=== PATIENT | female | born 1960 | race African-American/Black ===

== ENCOUNTER 2022-03-22 17:01 | Inpatient (IN) ==
[2022-03-22] MEDS ORDERED: HYDROmorphone 1 MG/1 ML SYRINGE IV STA (17:34)
[2022-03-22] MEDS ORDERED: METOPROLOL TARTRATE 50 MG TABLET PO STA (17:48)
[2022-03-22] MEDS ORDERED: VALSARTAN 160 MG TABLET PO ONE (17:50)
[2022-03-22 18:22] LABS: Mucus,Urine Occasional /LPF (Occasional); RBC,Urine 8 /HPF (0-4); Squamous Epithelial Cell,Urine Occasional /HPF (0-10); Urine Appearance Clear (Clear); Urine Color Yellow (Yellow)
[2022-03-22 18:23] LABS: Bilirubin,Urine Negative (Negative); Blood, Urine Trace mg/dL (Negative); Glucose,Urine (UA) Negative (Negative); Ketones,Urine Negative (Negative); Nitrite,Urine Negative (Negative); Protein,Urine 100 mg/dL (Negative); Urine Specific Gravity 1.025 (1.001-1.035); Urine pH 5.5 (4.5-8.0)
[2022-03-22 18:30] LABS: Basophils % 0.1 % (0.0-0.8); Hematocrit 37.5 VOL% (35.7-47.0); Hemoglobin 11.6 GM/DL (12.0-16.0); Immature Granulocytes % 0.8 %; Immature Granulocytes Absolute 0.08 #; Lymphocytes # 0.3 10*3/uL (1.4-4.0); Lymphocytes % 2.6 % (21.3-54.2); Mean Corpuscular HGB Conc 30.9 GM/DL (32-36); Mean Corpuscular Volume 88.7 FL (87-102); Mean Platelet Volume 9.8 FL (9.6-12.0); Monocytes # 0.8 10*3/uL (0.11-0.8); Neutrophils % 88.5 % (38.7-73.9); Platelet Count 260 T/CUMM (130-400); Red Blood Count 4.23 MC/CUMM (3.8-5.5); Red Cell Distribution Width 15.9 % (9.3-17.3); White Blood Count 10.4 T/CUMM (4-12)
[2022-03-22] MEDS ORDERED: MAGNESIUM SULF RIDER 2 GM/50 ML PREMIX IV STA (18:55)
[2022-03-22] MEDS ORDERED: ACETAMINOPHEN 500 MG TABLET PO STA (18:56)
[2022-03-22] MEDS ORDERED: cefTRIAXone 1,000 MG in SODIUM CHLORIDE 0.9% 100 ML IV STA (18:56)
[2022-03-22 19:01] LABS: Albumin 2.2 G/DL (3.4-5.0); Bilirubin,Total 1.3 MG/DL (0.20-1.00); Calcium 9.3 MG/DL (8.5-10.1); Osmolality,Calculated 281.7 MOS/KG (273-304); Potassium 3.6 MMOL/L (3.5-5.1); Total Protein 6.8 G/DL (6.4-8.2)
[2022-03-22 19:03] LABS: Band Neutrophils 13 % (0-10); Lymphocytes 4 % (20-55); Platelet Estimate Adequate; Total Cells Counted 100
[2022-03-22] MEDS ORDERED: GLUCAGON 1 MG VIAL IM PRN (20:08)
[2022-03-22] MEDS ORDERED: DEXTROSE 10% 250 ML BAG IV PRN (20:08)
[2022-03-22] MEDS ORDERED: ONDANSETRON 4 MG/2 ML VIAL IV PRN (20:13)
[2022-03-22] MEDS: METOPROLOL TARTRATE 50 MG TABLET PO SCH (22:34)
[2022-03-22] MEDS: ENOXAPARIN 40 MG/0.4 ML SYRINGE SUBCUT SCH (22:34)
[2022-03-22] MEDS: SODIUM CHLORIDE 0.9% 1,000 ML IV SCH (22:35)
[2022-03-22] MEDS: INSULIN REGULAR 100 UNIT/ML SUBCUT SCH (22:35)
[2022-03-23] MEDS: MORPHINE 2 MG/1 ML SYRINGE IV PRN ×3 (02:11→16:58)
[2022-03-23 04:48] LABS: Basophils % 0.2 % (0.0-0.8); Eosinophils % 0.1 % (0.00-10.9); Hematocrit 33.3 VOL% (35.7-47.0); Hemoglobin 10.2 GM/DL (12.0-16.0); Immature Granulocytes % 0.4 %; Immature Granulocytes Absolute 0.04 #; Lymphocytes # 0.4 10*3/uL (1.4-4.0); Lymphocytes % 4.2 % (21.3-54.2); Mean Corpuscular HGB Conc 30.6 GM/DL (32-36); Mean Corpuscular Volume 87.9 FL (87-102); Monocytes # 0.9 10*3/uL (0.11-0.8); Monocytes % 8.1 % (1.7-12.7); Platelet Count 224 T/CUMM (130-400); Red Blood Count 3.79 MC/CUMM (3.8-5.5); Red Cell Distribution Width 15.9 % (9.3-17.3); White Blood Count 10.4 T/CUMM (4-12)
[2022-03-23 05:13] LABS: Albumin 1.8 G/DL (3.4-5.0); Bilirubin,Total 1.2 MG/DL (0.20-1.00); Calcium 8.7 MG/DL (8.5-10.1); Osmolality,Calculated 283.5 MOS/KG (273-304); Potassium 3.5 MMOL/L (3.5-5.1); Risk Ratio 3.28; Thyroid Stimulating Hormone 0.394 uIU/ml (0.358-3.74); Total Protein 5.9 G/DL (6.4-8.2); VLDL Cholesterol 11.8 MG/DL
[2022-03-23 05:19] LABS: Band Neutrophils 5 % (0-10); Lymphocytes 4 % (20-55); Total Cells Counted 100
[2022-03-23 05:20] LABS: Hypochromia Slight; Microcytosis Slight
[2022-03-23 05:21] LABS: Ovalocytes Slight; Platelet Estimate Normal
[2022-03-23] MEDS: SODIUM CHLORIDE 0.9% 1,000 ML IV SCH (06:55)
[2022-03-23] MEDS: ATORVASTATIN 20 MG TABLET PO SCH (08:51)
[2022-03-23] MEDS: VALSARTAN 160 MG TABLET PO SCH (08:51)
[2022-03-23] MEDS: PANTOPRAZOLE 40 MG TABLET PO SCH (08:51)
[2022-03-23] MEDS: METOPROLOL TARTRATE 50 MG TABLET PO SCH ×2 (08:51→20:44)
[2022-03-23] MEDS: ACETAMINOPHEN 325 MG TABLET PO PRN (08:51)
[2022-03-23] MEDS: INSULIN REGULAR 100 UNIT/ML SUBCUT SCH ×4 (09:16→20:44)
[2022-03-23] MEDS: AZITHROMYCIN INJ 500 MG in SODIUM CHLORIDE 0.9% 250 ML IV SCH (12:37)
[2022-03-23] MEDS: ALBUTEROL/IPRATROPIUM 3 ML NEB RESP TX SCH ×2 (13:50→18:53)
[2022-03-23 13:58] LABS: Lymphocytes,Synovial Fluid 2 %; Neutrophils,Synovial Fluid 96 %
[2022-03-23] MEDS: VANCOMYCIN INJ 1,500 MG in SODIUM CHLORIDE 0.9% 500 ML IV SCH (17:00)
[2022-03-23] MEDS ORDERED: cefTRIAXone 1,000 MG VIAL IM SCH (21:00)
[2022-03-24] MEDS: ALBUTEROL/IPRATROPIUM 3 ML NEB RESP TX SCH ×4 (00:05→19:00)
[2022-03-24] MEDS: VANCOMYCIN INJ 1,500 MG in SODIUM CHLORIDE 0.9% 500 ML IV SCH ×2 (04:32→15:00)
[2022-03-24] MEDS: MORPHINE 2 MG/1 ML SYRINGE IV PRN (04:33)
[2022-03-24 06:41] LABS: Basophils % 0.1 % (0.0-0.8); Eosinophils % 0.2 % (0.00-10.9); Immature Granulocytes % 0.8 %; Immature Granulocytes Absolute 0.07 #; Lymphocytes # 0.4 10*3/uL (1.4-4.0); Lymphocytes % 4.7 % (21.3-54.2); Mean Corpuscular HGB Conc 31.3 GM/DL (32-36); Mean Platelet Volume 9.8 FL (9.6-12.0); Monocytes # 0.7 10*3/uL (0.11-0.8); Monocytes % 7.5 % (1.7-12.7); Neutrophils % 86.7 % (38.7-73.9); Platelet Count 256 T/CUMM (130-400); Red Blood Count 3.68 MC/CUMM (3.8-5.5); Red Cell Distribution Width 15.9 % (9.3-17.3); White Blood Count 8.8 T/CUMM (4-12)
[2022-03-24 06:57] LABS: Calcium 8.2 MG/DL (8.5-10.1); Potassium 3.4 MMOL/L (3.5-5.1)
[2022-03-24] MEDS ORDERED: SEVOFLURANE 1 UNIT/15 MINUTE INH ONE (07:09)
[2022-03-24] MEDS ORDERED: fentaNYL 100 MCG/2 ML VIAL ONE ×3 (07:09→08:23)
[2022-03-24] MEDS ORDERED: propofoL 200 MG/20 ML VIAL IV ONE (07:09)
[2022-03-24] MEDS ORDERED: ONDANSETRON 4 MG/2 ML VIAL ONE (07:09)
[2022-03-24] MEDS ORDERED: LIDOCAINE 2% 5 ML VIAL ONE (07:09)
[2022-03-24 07:12] LABS: Hypochromia Slight; Lymphocytes 2 % (20-55); Microcytosis Slight; Platelet Estimate Adequate; Total Cells Counted 100
[2022-03-24] MEDS ORDERED: ceFAZolin 1,000 MG VIAL ONE (08:21)
[2022-03-24] MEDS ORDERED: HYDROmorphone 1 MG/1 ML SYRINGE ONE (08:28)
[2022-03-24] MEDS ORDERED: POTASSIUM CHLORIDE 20 MEQ TABLET PO ONE (09:10)
[2022-03-24] MEDS ORDERED: ONDANSETRON 4 MG/2 ML VIAL IV PRN (09:16)
[2022-03-24] MEDS: HYDROmorphone 1 MG/1 ML SYRINGE IV PRN ×2 (09:22→09:35)
[2022-03-24] MEDS ORDERED: LABETALOL 20 MG/4 ML SYRINGE IV ONE (09:26)
[2022-03-24] MEDS ORDERED: LABETALOL 100 MG/20 ML VIAL IV ONE (09:32)
[2022-03-24] MEDS: INSULIN REGULAR 100 UNIT/ML SUBCUT SCH ×4 (10:30→21:03)
[2022-03-24] MEDS: PANTOPRAZOLE 40 MG TABLET PO SCH (10:32)
[2022-03-24] MEDS: VALSARTAN 160 MG TABLET PO SCH (11:33)
[2022-03-24] MEDS: ATORVASTATIN 20 MG TABLET PO SCH (11:33)
[2022-03-24] MEDS: METOPROLOL TARTRATE 50 MG TABLET PO SCH ×2 (11:33→20:50)
[2022-03-24] MEDS: AZITHROMYCIN INJ 500 MG in SODIUM CHLORIDE 0.9% 250 ML IV SCH (11:35)
[2022-03-24] MEDS ORDERED: DEXTROSE 50% 25 GM/50 ML VIAL IV PRN (17:55)
[2022-03-24] MEDS ORDERED: GLUCAGON 1 MG VIAL IM PRN (17:55)
[2022-03-25] MEDS: ALBUTEROL/IPRATROPIUM 3 ML NEB RESP TX SCH ×4 (00:01→19:52)
[2022-03-25 03:38] LABS: Basophils % 0.1 % (0.0-0.8); Eosinophils # 0.1 10*3/uL (0.0-0.87); Eosinophils % 0.7 % (0.00-10.9); Hematocrit 31.1 VOL% (35.7-47.0); Hemoglobin 9.5 GM/DL (12.0-16.0); Immature Granulocytes % 1.1 %; Immature Granulocytes Absolute 0.09 #; Lymphocytes # 0.6 10*3/uL (1.4-4.0); Lymphocytes % 6.7 % (21.3-54.2); Mean Corpuscular HGB Conc 30.5 GM/DL (32-36); Mean Corpuscular Volume 89.1 FL (87-102); Mean Platelet Volume 9.7 FL (9.6-12.0); Monocytes # 0.8 10*3/uL (0.11-0.8); Monocytes % 9.3 % (1.7-12.7); Neutrophils % 82.1 % (38.7-73.9); Platelet Count 231 T/CUMM (130-400); Red Blood Count 3.49 MC/CUMM (3.8-5.5); Red Cell Distribution Width 16.1 % (9.3-17.3); White Blood Count 8.4 T/CUMM (4-12)
[2022-03-25 04:00] LABS: Band Neutrophils 2 % (0-10); Eosinophils 3 % (0-10); Hypochromia Slight; Lymphocytes 5 % (20-55); Total Cells Counted 100
[2022-03-25 04:01] LABS: Burr Cells Slight; Microcytosis Slight
[2022-03-25 04:03] LABS: Potassium 3.8 MMOL/L (3.5-5.1)
[2022-03-25] MEDS: VANCOMYCIN INJ 1,500 MG in SODIUM CHLORIDE 0.9% 500 ML IV SCH (04:05)
[2022-03-25] MEDS: MORPHINE 2 MG/1 ML SYRINGE IV PRN ×3 (04:12→20:11)
[2022-03-25] MEDS: PANTOPRAZOLE 40 MG TABLET PO SCH (09:08)
[2022-03-25] MEDS: ATORVASTATIN 20 MG TABLET PO SCH (09:08)
[2022-03-25] MEDS: VALSARTAN 160 MG TABLET PO SCH (09:08)
[2022-03-25] MEDS: METOPROLOL TARTRATE 50 MG TABLET PO SCH ×2 (09:08→21:52)
[2022-03-25] MEDS: ceFAZolin 2,000 MG/50 ML DUPLEX IV SCH ×2 (10:30→17:37)
[2022-03-25] MEDS: AZITHROMYCIN INJ 500 MG in SODIUM CHLORIDE 0.9% 250 ML IV SCH (11:00)
[2022-03-25] MEDS: INSULIN REGULAR 100 UNIT/ML SUBCUT SCH ×4 (11:01→21:52)
[2022-03-25] MEDS: SODIUM CHLORIDE 0.9% 1,000 ML IV SCH (11:14)
[2022-03-25] MEDS: ENOXAPARIN 40 MG/0.4 ML SYRINGE SUBCUT SCH (17:37)
[2022-03-25] MEDS ORDERED: VANCOMYCIN INJ 1,500 MG in SODIUM CHLORIDE 0.9% 500 ML IV SCH (22:00)
[2022-03-26] MEDS: ALBUTEROL/IPRATROPIUM 3 ML NEB RESP TX SCH ×4 (00:45→19:40)
[2022-03-26] MEDS: ceFAZolin 2,000 MG/50 ML DUPLEX IV SCH ×3 (02:20→17:17)
[2022-03-26] MEDS: MORPHINE 2 MG/1 ML SYRINGE IV PRN ×4 (02:32→19:31)
[2022-03-26 06:07] LABS: Basophils % 0.2 % (0.0-0.8); Eosinophils # 0.1 10*3/uL (0.0-0.87); Eosinophils % 1.5 % (0.00-10.9); Hematocrit 27.5 VOL% (35.7-47.0); Hemoglobin 8.4 GM/DL (12.0-16.0); Immature Granulocytes % 1.9 %; Immature Granulocytes Absolute 0.16 #; Lymphocytes # 0.9 10*3/uL (1.4-4.0); Lymphocytes % 10.3 % (21.3-54.2); Mean Corpuscular HGB Conc 30.5 GM/DL (32-36); Mean Corpuscular Volume 89.6 FL (87-102); Monocytes # 0.7 10*3/uL (0.11-0.8); Neutrophils % 77.1 % (38.7-73.9); Platelet Count 282 T/CUMM (130-400); Red Blood Count 3.07 MC/CUMM (3.8-5.5); White Blood Count 8.2 T/CUMM (4-12)
[2022-03-26 06:32] LABS: Calcium 8.3 MG/DL (8.5-10.1); Potassium 3.5 MMOL/L (3.5-5.1)
[2022-03-26 06:40] LABS: Folate 6.97 NG/ML (5.38-24.0)
[2022-03-26 06:44] LABS: % Iron Saturation 11.8 % (18-50); Ferritin 353.8 ng/mL (8-252)
[2022-03-26] MEDS: INSULIN REGULAR 100 UNIT/ML SUBCUT SCH ×4 (08:21→21:47)
[2022-03-26] MEDS: ATORVASTATIN 20 MG TABLET PO SCH (08:52)
[2022-03-26] MEDS: VALSARTAN 160 MG TABLET PO SCH (08:52)
[2022-03-26] MEDS: PANTOPRAZOLE 40 MG TABLET PO SCH (08:53)
[2022-03-26] MEDS: METOPROLOL TARTRATE 50 MG TABLET PO SCH ×2 (08:53→20:52)
[2022-03-26] MEDS: CHOLECALCIFEROL 5,000 UNIT TABLET PO SCH (08:53)
[2022-03-26] MEDS: FERROUS SULFATE 325 MG TABLET PO SCH ×2 (08:53→17:17)
[2022-03-26] MEDS: AZITHROMYCIN INJ 500 MG in SODIUM CHLORIDE 0.9% 250 ML IV SCH (12:24)
[2022-03-26] MEDS: ENOXAPARIN 40 MG/0.4 ML SYRINGE SUBCUT SCH (17:19)
[2022-03-27] MEDS: ALBUTEROL/IPRATROPIUM 3 ML NEB RESP TX SCH ×4 (01:20→19:20)
[2022-03-27] MEDS: ceFAZolin 2,000 MG/50 ML DUPLEX IV SCH (01:49)
[2022-03-27 05:06] LABS: Basophils % 0.2 % (0.0-0.8); Eosinophils # 0.1 10*3/uL (0.0-0.87); Eosinophils % 1.3 % (0.00-10.9); Hematocrit 28.1 VOL% (35.7-47.0); Hemoglobin 8.6 GM/DL (12.0-16.0); Immature Granulocytes % 3.8 %; Immature Granulocytes Absolute 0.34 #; Lymphocytes % 10.8 % (21.3-54.2); Mean Corpuscular HGB Conc 30.6 GM/DL (32-36); Mean Corpuscular Volume 87.3 FL (87-102); Monocytes # 0.8 10*3/uL (0.11-0.8); Monocytes % 8.5 % (1.7-12.7); Neutrophils % 75.4 % (38.7-73.9); Platelet Count 328 T/CUMM (130-400); Red Blood Count 3.22 MC/CUMM (3.8-5.5); Red Cell Distribution Width 15.7 % (9.3-17.3); White Blood Count 8.9 T/CUMM (4-12)
[2022-03-27 05:26] LABS: Calcium 8.5 MG/DL (8.5-10.1); Osmolality,Calculated 282.3 MOS/KG (273-304); Potassium 3.2 MMOL/L (3.5-5.1)
[2022-03-27] MEDS ORDERED: POTASSIUM CHLORIDE 20 MEQ TABLET PO PRN (05:41)
[2022-03-27] MEDS ORDERED: MAGNESIUM SULF RIDER 2 GM/50 ML PREMIX IV ONE ×2 (05:45→07:45)
[2022-03-27] MEDS: INSULIN REGULAR 100 UNIT/ML SUBCUT SCH ×4 (08:36→20:15)
[2022-03-27] MEDS: VALSARTAN 160 MG TABLET PO SCH (08:37)
[2022-03-27] MEDS: CHOLECALCIFEROL 5,000 UNIT TABLET PO SCH (08:37)
[2022-03-27] MEDS: PANTOPRAZOLE 40 MG TABLET PO SCH (08:38)
[2022-03-27] MEDS: POTASSIUM CHLORIDE 20 MEQ TABLET PO SCH ×2 (08:38→10:08)
[2022-03-27] MEDS: ATORVASTATIN 20 MG TABLET PO SCH (08:38)
[2022-03-27] MEDS: METOPROLOL TARTRATE 50 MG TABLET PO SCH ×2 (08:38→20:13)
[2022-03-27] MEDS: FERROUS SULFATE 325 MG TABLET PO SCH ×2 (08:38→16:08)
[2022-03-27] MEDS: OXACILLIN 2,000 MG in SODIUM CHLORIDE 0.9% 100 ML IV SCH ×4 (10:08→21:08)
[2022-03-27] MEDS: AZITHROMYCIN INJ 500 MG in SODIUM CHLORIDE 0.9% 250 ML IV SCH (11:57)
[2022-03-27] MEDS: MORPHINE 2 MG/1 ML SYRINGE IV PRN ×2 (12:09→17:59)
[2022-03-27] MEDS: ENOXAPARIN 40 MG/0.4 ML SYRINGE SUBCUT SCH (17:09)
[2022-03-28] MEDS: ALBUTEROL/IPRATROPIUM 3 ML NEB RESP TX SCH ×4 (00:15→19:50)
[2022-03-28] MEDS: OXACILLIN 2,000 MG in SODIUM CHLORIDE 0.9% 100 ML IV SCH ×6 (01:15→22:23)
[2022-03-28] MEDS: MORPHINE 2 MG/1 ML SYRINGE IV PRN ×3 (04:44→20:39)
[2022-03-28 05:33] LABS: Basophils % 0.3 % (0.0-0.8); Eosinophils # 0.1 10*3/uL (0.0-0.87); Eosinophils % 1.4 % (0.00-10.9); Hematocrit 28.3 VOL% (35.7-47.0); Hemoglobin 8.8 GM/DL (12.0-16.0); Immature Granulocytes % 6.5 %; Immature Granulocytes Absolute 0.51 #; Lymphocytes % 12.1 % (21.3-54.2); Mean Corpuscular HGB Conc 31.1 GM/DL (32-36); Mean Corpuscular Volume 87.9 FL (87-102); Mean Platelet Volume 9.6 FL (9.6-12.0); Monocytes # 0.6 10*3/uL (0.11-0.8); Monocytes % 8.2 % (1.7-12.7); NRBC # 0.02 10*3/uL; Neutrophils % 71.5 % (38.7-73.9); Platelet Count 382 T/CUMM (130-400); Red Blood Count 3.22 MC/CUMM (3.8-5.5); Red Cell Distribution Width 15.8 % (9.3-17.3); White Blood Count 7.9 T/CUMM (4-12)
[2022-03-28 05:47] LABS: Calcium 8.3 MG/DL (8.5-10.1); Osmolality,Calculated 282.3 MOS/KG (273-304); Potassium 3.8 MMOL/L (3.5-5.1)
[2022-03-28 06:02] LABS: Eosinophils 2 % (0-10); Hypochromia Slight; Lymphocytes 10 % (20-55); Microcytosis Slight; Platelet Estimate Adequate; Total Cells Counted 100
[2022-03-28] MEDS ORDERED: MAGNESIUM SULF RIDER 2 GM/50 ML PREMIX IV ONE (08:00)
[2022-03-28] MEDS: INSULIN REGULAR 100 UNIT/ML SUBCUT SCH ×4 (08:35→22:22)
[2022-03-28] MEDS: PANTOPRAZOLE 40 MG TABLET PO SCH (09:42)
[2022-03-28] MEDS: FERROUS SULFATE 325 MG TABLET PO SCH ×2 (09:42→16:09)
[2022-03-28] MEDS: METOPROLOL TARTRATE 50 MG TABLET PO SCH ×2 (09:42→22:21)
[2022-03-28] MEDS: VALSARTAN 160 MG TABLET PO SCH (09:42)
[2022-03-28] MEDS: ATORVASTATIN 20 MG TABLET PO SCH (09:42)
[2022-03-28] MEDS: CHOLECALCIFEROL 5,000 UNIT TABLET PO SCH (09:42)
[2022-03-28] MEDS: AZITHROMYCIN INJ 500 MG in SODIUM CHLORIDE 0.9% 250 ML IV SCH (10:37)
[2022-03-28] MEDS ORDERED: BUPIVACAINE MPF 0.25% 10 ML VIAL ONE (11:57)
[2022-03-28] MEDS ORDERED: SEVOFLURANE 1 UNIT/15 MINUTE INH ONE ×2 (12:04→12:37)
[2022-03-28] MEDS ORDERED: propofoL 200 MG/20 ML VIAL IV ONE (12:04)
[2022-03-28] MEDS ORDERED: ETOMIDATE 40 MG/20 ML VIAL IV ONE (12:04)
[2022-03-28] MEDS ORDERED: LIDOCAINE 2% 5 ML VIAL ONE (12:04)
[2022-03-28] MEDS ORDERED: KETAMINE 500 MG/10 ML VIAL ONE (12:05)
[2022-03-28] MEDS ORDERED: ONDANSETRON 4 MG/2 ML VIAL ONE (12:20)
[2022-03-28] MEDS ORDERED: fentaNYL 100 MCG/2 ML VIAL ONE (12:21)
[2022-03-28] MEDS ORDERED: ONDANSETRON 4 MG/2 ML VIAL IV PRN (13:02)
[2022-03-28] MEDS ORDERED: HYDROmorphone 1 MG/1 ML SYRINGE ONE (13:03)
[2022-03-28] MEDS: HYDROmorphone 1 MG/1 ML SYRINGE IV PRN ×2 (13:05→13:15)
[2022-03-28] MEDS: hydrALAZINE 20 MG/1 ML VIAL IV PRN (13:23)
[2022-03-29] MEDS: ALBUTEROL/IPRATROPIUM 3 ML NEB RESP TX SCH ×4 (00:02→19:24)
[2022-03-29] MEDS: MORPHINE 2 MG/1 ML SYRINGE IV PRN ×5 (00:59→23:26)
[2022-03-29] MEDS: OXACILLIN 2,000 MG in SODIUM CHLORIDE 0.9% 100 ML IV SCH ×6 (01:02→21:17)
[2022-03-29 05:32] LABS: Basophils % 0.1 % (0.0-0.8); Eosinophils # 0.1 10*3/uL (0.0-0.87); Eosinophils % 2.1 % (0.00-10.9); Hematocrit 29.7 VOL% (35.7-47.0); Immature Granulocytes % 5.2 %; Immature Granulocytes Absolute 0.35 #; Lymphocytes # 0.8 10*3/uL (1.4-4.0); Lymphocytes % 11.3 % (21.3-54.2); Mean Corpuscular HGB Conc 30.3 GM/DL (32-36); Mean Corpuscular Volume 88.7 FL (87-102); Mean Platelet Volume 9.4 FL (9.6-12.0); Monocytes # 0.6 10*3/uL (0.11-0.8); Monocytes % 8.9 % (1.7-12.7); NRBC # 0.02 10*3/uL; Neutrophils % 72.4 % (38.7-73.9); Platelet Count 378 T/CUMM (130-400); Red Blood Count 3.35 MC/CUMM (3.8-5.5); Red Cell Distribution Width 15.8 % (9.3-17.3); White Blood Count 6.7 T/CUMM (4-12)
[2022-03-29 05:50] LABS: Calcium 8.6 MG/DL (8.5-10.1); Osmolality,Calculated 275.5 MOS/KG (273-304)
[2022-03-29 06:34] LABS: Eosinophils 1 % (0-10); Lymphocytes 13 % (20-55); Platelet Estimate Normal; Total Cells Counted 100
[2022-03-29] MEDS ORDERED: MAGNESIUM SULF RIDER 2 GM/50 ML PREMIX IV ONE (08:18)
[2022-03-29] MEDS: INSULIN REGULAR 100 UNIT/ML SUBCUT SCH ×3 (08:39→21:00)
[2022-03-29] MEDS: VALSARTAN 160 MG TABLET PO SCH (09:39)
[2022-03-29] MEDS: CHOLECALCIFEROL 5,000 UNIT TABLET PO SCH (09:40)
[2022-03-29] MEDS: ATORVASTATIN 20 MG TABLET PO SCH (09:40)
[2022-03-29] MEDS: METOPROLOL TARTRATE 50 MG TABLET PO SCH (09:40)
[2022-03-29] MEDS: FERROUS SULFATE 325 MG TABLET PO SCH ×2 (09:40→18:17)
[2022-03-29] MEDS: PANTOPRAZOLE 40 MG TABLET PO SCH (09:40)
[2022-03-29] MEDS ORDERED: METOPROLOL TARTRATE 25 MG TABLET PO ONE (10:00)
[2022-03-29] MEDS: AZITHROMYCIN INJ 500 MG in SODIUM CHLORIDE 0.9% 250 ML IV SCH (13:03)
[2022-03-29] MEDS: hydrALAZINE 20 MG/1 ML VIAL IV PRN (16:23)
[2022-03-29] MEDS: METOPROLOL TARTRATE 25 MG TABLET PO SCH (20:58)
[2022-03-30] MEDS: ALBUTEROL/IPRATROPIUM 3 ML NEB RESP TX SCH ×4 (00:35→19:08)
[2022-03-30] MEDS: OXACILLIN 2,000 MG in SODIUM CHLORIDE 0.9% 100 ML IV SCH ×6 (02:18→21:11)
[2022-03-30] MEDS: MORPHINE 2 MG/1 ML SYRINGE IV PRN ×2 (03:21→07:24)
[2022-03-30] MEDS: hydrALAZINE 20 MG/1 ML VIAL IV PRN (03:37)
[2022-03-30 05:26] LABS: Basophils % 0.1 % (0.0-0.8); Eosinophils # 0.1 10*3/uL (0.0-0.87); Eosinophils % 1.9 % (0.00-10.9); Hematocrit 28.2 VOL% (35.7-47.0); Hemoglobin 8.6 GM/DL (12.0-16.0); Immature Granulocytes % 3.6 %; Immature Granulocytes Absolute 0.25 #; Lymphocytes # 0.9 10*3/uL (1.4-4.0); Lymphocytes % 12.7 % (21.3-54.2); Mean Corpuscular HGB Conc 30.5 GM/DL (32-36); Mean Corpuscular Volume 88.4 FL (87-102); Mean Platelet Volume 9.6 FL (9.6-12.0); Monocytes # 0.5 10*3/uL (0.11-0.8); Monocytes % 7.5 % (1.7-12.7); Neutrophils % 74.2 % (38.7-73.9); Platelet Count 413 T/CUMM (130-400); Red Blood Count 3.19 MC/CUMM (3.8-5.5); Red Cell Distribution Width 15.6 % (9.3-17.3)
[2022-03-30 05:39] LABS: Calcium 8.7 MG/DL (8.5-10.1); Osmolality,Calculated 275.5 MOS/KG (273-304); Potassium 3.7 MMOL/L (3.5-5.1)
[2022-03-30] MEDS ORDERED: MAGNESIUM SULF RIDER 2 GM/50 ML PREMIX IV ONE (07:50)
[2022-03-30] MEDS: INSULIN REGULAR 100 UNIT/ML SUBCUT SCH ×4 (08:46→21:24)
[2022-03-30] MEDS: VALSARTAN 160 MG TABLET PO SCH (09:44)
[2022-03-30] MEDS: METOPROLOL TARTRATE 25 MG TABLET PO SCH ×2 (09:45→21:11)
[2022-03-30] MEDS: PANTOPRAZOLE 40 MG TABLET PO SCH (09:45)
[2022-03-30] MEDS: FERROUS SULFATE 325 MG TABLET PO SCH ×2 (09:45→17:10)
[2022-03-30] MEDS: CHOLECALCIFEROL 5,000 UNIT TABLET PO SCH (09:45)
[2022-03-30] MEDS: ATORVASTATIN 20 MG TABLET PO SCH (09:53)
[2022-03-30] MEDS: ACETAMINOPHEN 325 MG TABLET PO PRN (17:13)
[2022-03-31] MEDS: ALBUTEROL/IPRATROPIUM 3 ML NEB RESP TX SCH ×3 (00:23→14:33)
[2022-03-31] MEDS: OXACILLIN 2,000 MG in SODIUM CHLORIDE 0.9% 100 ML IV SCH ×4 (02:32→13:55)
[2022-03-31] MEDS: hydrALAZINE 20 MG/1 ML VIAL IV PRN (02:34)
[2022-03-31 06:39] LABS: Basophils % 0.2 % (0.0-0.8); Eosinophils # 0.1 10*3/uL (0.0-0.87); Eosinophils % 1.2 % (0.00-10.9); Hematocrit 29.3 VOL% (35.7-47.0); Hemoglobin 9.1 GM/DL (12.0-16.0); Immature Granulocytes % 2.2 %; Immature Granulocytes Absolute 0.13 #; Lymphocytes # 0.7 10*3/uL (1.4-4.0); Lymphocytes % 12.5 % (21.3-54.2); Mean Corpuscular HGB Conc 31.1 GM/DL (32-36); Mean Corpuscular Volume 87.2 FL (87-102); Mean Platelet Volume 8.9 FL (9.6-12.0); Monocytes # 0.4 10*3/uL (0.11-0.8); Monocytes % 7.2 % (1.7-12.7); Neutrophils % 76.7 % (38.7-73.9); Platelet Count 420 T/CUMM (130-400); Red Blood Count 3.36 MC/CUMM (3.8-5.5); Red Cell Distribution Width 15.7 % (9.3-17.3); White Blood Count 5.9 T/CUMM (4-12)
[2022-03-31 07:04] LABS: Calcium 8.6 MG/DL (8.5-10.1); Osmolality,Calculated 277.4 MOS/KG (273-304); Potassium 3.3 MMOL/L (3.5-5.1)
[2022-03-31] MEDS: INSULIN REGULAR 100 UNIT/ML SUBCUT SCH ×2 (07:32→12:38)
[2022-03-31] MEDS ORDERED: POTASSIUM CHLORIDE 20 MEQ TABLET PO ONE (08:00)
[2022-03-31] MEDS ORDERED: MAGNESIUM SULF RIDER 2 GM/50 ML PREMIX IV ONE (08:00)
[2022-03-31] MEDS: CHOLECALCIFEROL 5,000 UNIT TABLET PO SCH (08:34)
[2022-03-31] MEDS: PANTOPRAZOLE 40 MG TABLET PO SCH (08:34)
[2022-03-31] MEDS: ACETAMINOPHEN 325 MG TABLET PO PRN (08:34)
[2022-03-31] MEDS: METOPROLOL TARTRATE 25 MG TABLET PO SCH (08:34)
[2022-03-31] MEDS: VALSARTAN 160 MG TABLET PO SCH (08:35)
[2022-03-31] MEDS: ATORVASTATIN 20 MG TABLET PO SCH (08:35)
[2022-03-31] MEDS: FERROUS SULFATE 325 MG TABLET PO SCH (08:35)
[2022-03-31] MEDS ORDERED: HYDROmorphone 1 MG/1 ML SYRINGE IV PRN (09:51)
[2022-03-31 12:45] VITALS: BP 189/84
[2022-03-31] MEDS ORDERED: DEXTROSE 50% 25 GM/50 ML VIAL IV PRN (13:41)
[2022-03-31] MEDS ORDERED: GLUCAGON 1 MG VIAL IM PRN (13:41)
== END 2022-03-31 15:47 | DRG 485 ==
LOC: EDBD → EDUNIT# → N.ED 17:01 → N.EDINP 20:08 → N.3E 21:37
PROVIDERS: ADMIT Internal Medicine; ATTEND Internal Medicine